=== PATIENT | male | born 1945 | race Caucasian/White ===

== ENCOUNTER 2019-05-27 07:58 | Emergency (ER) | payer MEDICARE, OTHER ==
[~2019-05-27] VITALS: Ht 177.8 cm; Wt 128.7 kg
[~2019-05-27 07:58] MED LIST: ATEN50TA2 OR; CIPR500T4 OR; FLAG500T OR; ISOS60TA2 OR; LISI5TAB OR; PERC5TAB8 OR; PERC7.5T8 OR; ZOCO40TA OR
[2019-05-27] MEDS ORDERED: ASPI81CH33 PO (08:19)
[2019-05-27] MEDS ORDERED: COUM10TA PO (08:19)
[2019-05-27] MEDS ORDERED: SPIR-10 PO (08:19)
[2019-05-27] MEDS ORDERED: ZYLO300T6 PO (08:19)
[2019-05-27 08:39] LABS: HEMATOCRIT 50.1 % (42.0-52.0); HEMOGLOBIN 17.2 g/dl (13.5-17.5); MEAN CORPUSCULAR HEMOGLOBIN 33.9 pg (27.0-33.0); MEAN CORPUSCULAR HGB CONC 34.3 g/dl (32.0-36.5); MEAN CORPUSCULAR VOLUME 98.6 fl (80.0-96.0); PLATELET COUNT, AUTOMATED 149 10^3/uL (150-450); RED BLOOD COUNT 5.08 10^6/uL (4.30-6.10); WHITE BLOOD COUNT 6.1 10^3/uL (4.0-10.0)
[2019-05-27 08:51] LABS: INR 2.55; PROTHROMBIN TIME 27.3 SECONDS (11.8-14.0)
[2019-05-27] MEDS ORDERED: KEFL500C17 PO (12:56)
[2019-05-27 13:54] VITALS: BP 141/76
== END 2019-05-27 13:55 | disposition home or self-care (01) ==
LOC: M ED 07:58
DX: R04.0 Epistaxis (principal); I48.91 Unspecified atrial fibrillation; I10 Essential (primary) hypertension; Z79.82 Long term (current) use of aspirin; Z79.01 Long term (current) use of anticoagulants; Z79.899 Other long term (current) drug therapy; Z91.030 Bee allergy status; Z88.8 Allergy status to other drugs, medicaments and biological substances